=== PATIENT | female | born 1945 | race Caucasian/White ===

== ENCOUNTER 2019-03-25 14:18 | Outpatient (CLI) | payer MEDICARE, OTHER ==
--- NOTE | 2019-03-25 15:22 | MMO ---
Bilateral MAMMO Bilat Screen [facility]. CLINICAL HISTORY: Patient is 73 years old and is seen for screening. The patient has the following family history of breast cancer: sister, at age 38. The patient has no personal history of cancer. VIEWS: The views performed were: bilateral craniocaudal with tomosynthesis and bilateral mediolateral oblique with tomosynthesis. FILMS COMPARED: The present examination has been compared to a prior imaging study performed at [facility] on 12/27/2007. This study has been interpreted with the assistance of computer-aided detection. MAMMOGRAM FINDINGS: There are scattered fibroglandular densities. Finding 1: There are stable benign appearing calcifications seen in both breasts. Finding 2: There is a new mass measuring 13 millimeters with indistinct margins and associated amorphous or indistinct calcifications seen in the anterior region of the left breast at 9 o'clock. IMPRESSION: FINDING 1: STABLE CALCIFICATIONS IN BOTH BREASTS ARE BENIGN. FINDING 2: NEW MASS IN THE LEFT BREAST REQUIRES ADDITIONAL EVALUATION. ADDITIONAL PROJECTIONS (LEFT CRANIOCAUDAL SPOT COMPRESSION; LEFT MEDIOLATERAL OBLIQUE SPOT COMPRESSION; AND LEFT MEDIOLATERAL) ARE RECOMMENDED. AN ULTRASOUND EXAM IS RECOMMENDED. ADDITIONAL IMAGING. THE RESULTS OF THIS EXAM WERE SENT TO THE PATIENT. ACR BI-RADS Category 0 - Incomplete: Need additional imaging evaluation. [facility] will notify the patient of the need for additional imaging services. MAMMOGRAPHY NOTE: 1. A negative mammogram report should not delay a biopsy if a dominant of clinically suspicious mass is present. 2. Approximately 10% to 15% of breast cancers are not detected by mammography. 3. Adenosis and dense breasts may obscure an underlying neoplasm. Reported by: JESSIE THOMAS MD Electonically Signed: [id number]
== END 2019-03-25 14:19 | disposition home or self-care (01) ==
LOC: BICMAMMO 14:18
PROVIDERS: ATTEND Family Medicine
DX: Z12.31 Encounter for screening mammogram for malignant neoplasm of breast (principal); N63.24 Unspecified lump in the left breast, lower inner quadrant; R92.1 Mammographic calcification found on diagnostic imaging of breast; Z80.3 Family history of malignant neoplasm of breast
CPT/HCPCS: 77063; 77067

== ENCOUNTER 2019-03-28 12:41 | Outpatient (CLI) | payer MEDICARE, OTHER ==
--- NOTE | 2019-03-28 13:08 | MMO ---
Left Breast MAMMO Unilat Diag [facility] LT+CAIN. CLINICAL HISTORY: Patient is 73 years old and is seen for additional evaluation requested at current screening. The patient has the following family history of breast cancer: sister, at age 38. The patient has no personal history of cancer. VIEWS: The views performed were: left craniocaudal spot compression with tomosynthesis; left mediolateral oblique spot compression with tomosynthesis; and left mediolateral with tomosynthesis. FILMS COMPARED: The present examination has been compared to prior imaging studies performed at [facility] on 12/27/2007, and at [facility] on 03/25/2019. This study has been interpreted with the assistance of computer-aided detection. MAMMOGRAM FINDINGS: There are scattered fibroglandular densities. Comparison exam from 01/04/2010 is now available, and demonstrates this low density, circumscribed oval mass to be stable. There are no suspicious masses, suspicious calcifications, or new areas of architectural distortion. IMPRESSION: THERE IS NO MAMMOGRAPHIC EVIDENCE OF MALIGNANCY. A ROUTINE FOLLOW-UP MAMMOGRAM IN 1 YEAR IS RECOMMENDED. THE RESULTS OF THIS EXAM WERE SENT TO THE PATIENT. ACR BI-RADS Category 2 - Benign finding MAMMOGRAPHY NOTE: 1. A negative mammogram report should not delay a biopsy if a dominant of clinically suspicious mass is present. 2. Approximately 10% to 15% of breast cancers are not detected by mammography. 3. Adenosis and dense breasts may obscure an underlying neoplasm. Reported by: AISHA LEACH MD Electonically Signed: [id number]
== END 2019-03-28 12:42 | disposition home or self-care (01) ==
LOC: BICMAMMO 12:41
PROVIDERS: ATTEND Family Medicine
DX: N63.20 Unspecified lump in the left breast, unspecified quadrant (principal)
CPT/HCPCS: 77065; G0279